=== PATIENT | female | born 1995 | race Caucasian/White ===

== ENCOUNTER → 2019-05-17 | Outpatient (REF) | payer OTHER | LOC: M SFHCLERA 17:54 | PROVIDERS: ATTEND Physician Assistant Medical | DX: N30.00 Acute cystitis without hematuria (principal) ==

== ENCOUNTER 2019-06-30 20:09 | Emergency (ER) | payer OTHER ==
[~2019-06-30] VITALS: Ht 157.5 cm; Wt 86.4 kg
[2019-06-30] MEDS ORDERED: NORT50CA PO (20:29)
[2019-06-30] MEDS ORDERED: METF-839 PO (20:29)
[2019-06-30 21:09] LABS: BASO # 0.1 10^3/uL (0.0-0.2); BASO % 0.5 % (0.0-1.0); EOS # 0.2 10^3/uL (0.0-0.5); EOS % 2.1 % (0.0-3.0); HEMATOCRIT 42.3 % (36.0-47.0); HEMOGLOBIN 14.7 g/dl (12.0-15.5); LYMPH # 2.7 10^3/uL (1.5-5.0); LYMPH % 26.1 % (24.0-44.0); MEAN CORPUSCULAR HEMOGLOBIN 30.2 pg (27.0-33.0); MEAN CORPUSCULAR HGB CONC 34.8 g/dl (32.0-36.5); MONO % 9.9 % (0.0-5.0); NEUTROPHILS # 6.2 10^3/uL (1.5-8.5); NEUTROPHILS % 60.4 % (36.0-66.0); PLATELET COUNT, AUTOMATED 256 10^3/uL (150-450); RED BLOOD COUNT 4.86 10^6/uL (4.00-5.40); WHITE BLOOD COUNT 10.3 10^3/uL (4.0-10.0)
[2019-06-30 21:21] LABS: HCG, SERUM QUALITATIVE NEGATIVE (NEGATIVE)
[2019-06-30 22:03] LABS: ALBUMIN 3.7 GM/DL (3.2-5.2); ALT/SGPT 37 U/L (12-78); BILIRUBIN,DIRECT < 0.1 MG/DL (0.0-0.2); BILIRUBIN,TOTAL 0.4 MG/DL (0.2-1.0); BLOOD UREA NITROGEN 7 MG/DL (7-18); CALCIUM LEVEL 9.4 MG/DL (8.5-10.1); CARBON DIOXIDE LEVEL 26 MEQ/L (21-32); CHLORIDE LEVEL 105 MEQ/L (98-107); CREATININE FOR GFR 0.67 MG/DL (0.55-1.30); GLOMERULAR FILTRATION RATE > 60.0 (>60); GLUCOSE, FASTING 100 MG/DL (70-100); LIPASE 139 U/L (73-393); POTASSIUM SERUM 3.9 MEQ/L (3.5-5.1); SODIUM LEVEL 138 MEQ/L (136-145); TOTAL PROTEIN 7.9 GM/DL (6.4-8.2)
[2019-06-30] MEDS ORDERED: IBUPROFEN 600 MG TAB PO ONE (22:30)
--- NOTE | 2019-06-30 23:43 | REPVR ---
EXAM: US Abdomen Limited, Right Upper Quadrant EXAM DATE/TIME: 06/30/2019 11:12 PM CLINICAL HISTORY: 23 years old, female; Abdominal pain; Acute; Additional info: Ruq pain, HX cholecystitis TECHNIQUE: Imaging protocol: Real-time ultrasound of the abdomen with image documentation. Examination was focused on the right upper quadrant. COMPARISON: No relevant prior studies available. FINDINGS: Liver: Hepatic steatosis. Otherwise normal. No masses. Gallbladder: One centimeter echogenic focus in the gallbladder consistent with gallstone. Negative sonographic Kitchen's sign. Common bile duct: The common bile duct measures 3.8 mm. No mass or choledocholithiasis. Pancreas: Pancreas obscured by bowel gas. Right kidney: Right kidney measures 11.5 x 4.8 x 5.6 cm. IMPRESSION: 1. Cholelithiasis. No sonographic evidence of acute cholecystitis. 2. Hepatic steatosis. 3. Otherwise unremarkable. Electronically signed by: Mateo Burroughs On 06/30/2019 23:42:42 PM
[2019-07-01] MEDS ORDERED: ZOFR8TAB24 PO (00:06)
[2019-07-01 00:20] VITALS: BP 127/84
== END 2019-07-01 00:51 | disposition home or self-care (01) ==
LOC: M ED 20:09
DX: K81.9 Cholecystitis, unspecified (principal); K76.89 Other specified diseases of liver; K83.9 Disease of biliary tract, unspecified; K80.20 Calculus of gallbladder without cholecystitis without obstruction; R11.0 Nausea; R19.7 Diarrhea, unspecified; E11.9 Type 2 diabetes mellitus without complications; K21.9 Gastro-esophageal reflux disease without esophagitis; E28.2 Polycystic ovarian syndrome; Z79.84 Long term (current) use of oral hypoglycemic drugs; Z79.899 Other long term (current) drug therapy